=== PATIENT | male | born 1980 | race Caucasian/White ===

== ENCOUNTER 2016-08-13 16:17 | Emergency (ER) | payer BC ==
--- NOTE | 2016-08-13 19:26 | ED CLINICAL REPORT ---
Clinical Report - Physicians/Mid Levels [facility] [address] [place] [address] 08/13/2016 16:20 [id number] Time Seen: 16:47 Mar 2016. Arrived- By private vehicle. HISTORY OF PRESENT ILLNESS Chief Complaint: ABDOMINAL PAIN. This started 7 days and is still present. It is described as "pain" and it is described as located in the left abdomen and the left flank. The patient has had nausea. No loss of appetite, vomiting or diarrhea. (Patient reports consistent abdominal pain the left upper side over the last 7 days. No nausea vomiting or diarrhea. No history of similar, has a history of nephrolithiasis, reports this is different.). REVIEW OF SYSTEMS No constipation, black stools, hematemesis, difficulty with urination or pain with urination. No fever, headache or chills. All systems otherwise negative, except as recorded above. SOCIAL HISTORY Never smoker. No alcohol use or drug use. ADDITIONAL NOTES The nursing notes have been reviewed. PHYSICAL EXAM Vital Signs: 08/13/2016 16:34 BP: 135/90. HR: 74. RR: 18. O2 saturation: 98%. Temp: 98.3 F. Pain level now: 7/10. Appearance: Alert. Eyes: Eyes normal inspection. ENT: Nose normal. Pharynx normal. No pharyngeal erythema or tonsillar exudate. Neck: Normal inspection. CVS: Normal heart rate and rhythm. Heart sounds normal. No cardiac murmur or extra heart sounds. Respiratory: No respiratory distress. Breath sounds normal. Chest nontender. No decreased air movement. Abdomen: Soft. Mild tenderness in the epigastric area and left upper quadrant. No organomegaly. No mass. Obese. No distention or scar present. Back: Normal inspection. No CVA tenderness. Skin: Skin warm. Normal skin color. Neuro: Oriented X 3. No motor deficit. LABS, X-RAYS, AND EKG Abdominal CT: IMPRESSION: 1. 3 mm proximal ureteral calculus causing mild left hydronephrosis. 2. Mild hepatic steatosis. 3. Findings called to the emergency room. All CT scans at this facility use dose modulation, iterative reconstruction, and/or weight-based dosing when appropriate to reduce radiation dose to as low as reasonably achievable. Electronically Final signed by:Ericka Mackey MD 08/13/2016 7:40:04 PM. Laboratory Tests: UA-Culture if indicated: (FRANCISCA: 08/13/2016 16:40) ( NvgRcvd 08/13/2016 17:12) Final results Test Result Flag Units (Reference) URINE COLOR YELLOW URINE APPEARANCE CLEAR URINE GLUCOSE NEGATIVE (NEGATIVE) URINE BILIRUBIN NEGATIVE (NEGATIVE) URINE KETONE NEGATIVE (NEGATIVE) URINE SPECIFIC GRAVITY >= 1.030 (1.010-1.030) URINE PH 5.5 (5.0-8.0) URINE PROTEIN NEGATIVE (NEGATIVE) URINE UROBILINOGEN 0.2 EU/dL (0.2-1.0) URINE NITRITE NEGATIVE (NEGATIVE) URINE BLOOD 1+ (NEGATIVE) URINE LEUK ESTERASE NEGATIVE (NEGATIVE) URINE RBC 1-3 rbc/hpf (0-1) URINE WBC 5-10 wbc/hpf (0-1) URINE EPITHELIAL CELLS 0-1 EPI/hpf (0-5) URINE BACTERIA NONE SEEN (NONE SEEN) URINE COMMENT CULT NOT INDICATED 1+ MUCUSURINE CULTURES ARE SET-UP BASED ON THE FOLLOWING CRITERIA:POSITIVE NITRITEPOSITIVE LEUKOCYTE ESTERASEGREATER THAN 10 WHITE BLOOD CELLSMODERATE (2+) OR GREATER BACTERIA CBC w Diff: (FRANCISCA: 08/13/2016 17:03) ( [facility] 08/13/2016 17:27) Final results Test Result Flag Units (Reference) WHITE BLOOD COUNT 6.8 K/uL (4.5-11.5) RED BLOOD COUNT 4.71 M/uL (4.50-5.90) HEMOGLOBIN 12.4 L gm/dL (13.5-17.5) HEMATOCRIT 37.6 L % (41.0-53.0) MEAN CELL VOLUME 80 fL (80-100) MEAN CORPUSCULAR HGB 26 pg (26-34) MEAN CORPUSCULAR HGB CONC 33 g/dL (31-37) RED CELL DISTRIBUTION WIDTH 12.9 % (11.6-14.8) PLATELET COUNT 194 K/uL (150-400) NEUTROPHIL % 65.4 % (50-75) LYMPH % 26.5 % (25-40) MONO % 6.3 % (3-14) EOSINOPHIL % 1.6 % (0-4) BASOPHIL % 0.2 % (0-2) CMP: (FRANCISCA: 08/13/2016 17:03) ( MsgRcvd 08/13/2016 17:48) Final results Test Result Flag Units (Reference) GLUCOSE 114 H mg/dL (70-110) BUN 12 mg/dL (7-18) CREATININE 0.8 mg/dL (0.6-1.3) Estimated GFR >60 mL/min Estimated GFR- >60 mL/min Note: Persistent reduction over 3 months in eGFR<60 mL/min/1.73 m2 defines CKD. Patients with eGFR values>=60 mL/min/1.73 m2 may also have CKD if evidence ofpersistent proteinuria. Additional information may be foundat [email or web address].org. SODIUM 142 mmol/L (136-145) POTASSIUM 3.7 mmol/L (3.5-5.1) CHLORIDE 105 mmol/L (98-107) CARBON DIOXIDE 29 mmol/L (21-32) CALCIUM 8.8 mg/dL (8.5-10.1) TOTAL PROTEIN 7.1 g/dL (6.4-8.2) ALBUMIN 3.4 g/dL (3.3-5.0) BILIRUBIN, TOTAL 0.8 mg/dL (0.0-1.0) ALKALINE PHOSPHATASE 71 U/L (46-116) AST (SGOT) 32 U/L (15-37) ALT (SGPT) 78 U/L (12-78) LIPASE 85 U/L (73-393) . PROGRESS AND PROCEDURES Course of Care: During the time in the ED, the following DDX were considered: acute surgical abdomen, hemodynamic or metabolic instability, dehydration, gastroenteritis-viral, food borne, or bacterial, food intolerance, irritable or inflammatory bowel, infection, sepsis. Hematuria, with nephrolithiasis, with no signs of sepsis. Pt stable. Afebrile. Pt to f/u outpatient. Given pain control in ER. Strict return precautions, and f/u with urology. 08/13/2016 19:51 BP: 124/74. HR: 85. RR: 16. O2 saturation: 98%. Temp: 98.1 F. Pain level now: 10. Patient is stable. Symptoms better. Patient/family counseled. Disposition: Discharged. CLINICAL IMPRESSION Ureterolithiasis (single stone) in the left ureter with renal colic and hematuria. INSTRUCTIONS (urology: [phone]). Prescription Medications: Hydrocodone/APAP 7.5mg / 325mg: take 1 orally every 6 hours. Dispense twenty (20). No refill. Zofran (orally disintegrating tablets) 4 mg: take 1 orally every 6 hours for 3 days as needed for nausea. Dispense ten (10). No refill. Substitution is permissible. Flomax 0.4 mg: take 1 orally every 24 hours. Dispense ten (10). No refills. Substitution is permissible. Follow-up: Follow up with a specialist. Understanding of the discharge instructions verbalized by patient. (Electronically signed by Brook Griffith P.A.-C 08/13/2016 20:01)
--- NOTE | 2016-08-13 19:26 | ED ORDER SUMMARY ---
..... Patient: GILL RATLIFF OrderSheet [facility] VisitID: [id number] [place] [address] 36y, M Registration Date/Time: 08/13/2016 ORDER SHEET Weight: 102.0 kg (stated) Allergies: No Known Drug Allergy GENERAL ORDERS: CBC w Diff Urgent (16:40 08/13/2016 EKoroleva P.A.-C) (Ack 16:42 OHmoralesnandez) (17:11 MWinterer R.N.) BMP Urgent (16:40 08/13/2016 EKoroleva P.A.-C) (Cancelled: Other16:40 EKoroleva P.A.-C) UA-Culture if indicated Urgent (16:40 08/13/2016 EKoroleva P.A.-C) (Ack 16:42 OHmoralesnandez) (17:12 MWinterer R.N.) Lipase Urgent (16:40 08/13/2016 EKoroleva P.A.-C) (Ack 16:42 OHmoralesnandez) (17:11 MWinterer R.N.) CMP Urgent (16:40 08/13/2016 EKoroleva P.A.-C) (Ack 16:42 OHmoralesnandez) (17:11 MWinterer R.N.) CT Abd/Pel wo Cont Urgent (17:51 08/13/2016 EKoroleva P.A.-C) (Ack 18:23 Marc) (18:23 Marc) MEDICATION ORDERS: IV FLUIDS: IV NS : initial bolus 1000 mL (1000 mL/hr), then 1000 mL/hr for X1 (NOW); Luis Alfredo (16:40 08/13/2016 EKoroleva P.A.-C) (Ack 16:43 MWinterer R.N.) (17:12 MWinterer R.N.) Toradol IV 30 mg (NOW) (17:45 08/13/2016 EKoroleva P.A.-C) (Ack 17:50 MWinterer R.N.) (17:57 MWinterer R.N.) Dilaudid IV 0.5 mg (HIGH ALERT MEDICATION, NOW) (18:46 08/13/2016 MWinterer R.N. verbal order read back to Eve Cobian) (Ack 18:47 MWinterer R.N.) (18:52 MWinterer R.N.) Dilaudid IV 0.5 mg (HIGH ALERT MEDICATION, NOW) (19:26 08/13/2016 Eve Cobian) (Ack 19:27 HSoule) (19:51 RCollier R.N.) ORDER SHEET NOTES: [Electronically signed by Brook Griffith P.A.-C (20:01 08/13/2016)] [Electronically signed by Omayra Branham (21:39 08/13/2016)] [Electronically locked/signed by Omayra Branham (21:39 08/13/2016)]
--- NOTE | 2016-08-13 19:26 | ED NURSING NOTES ---
Clinical Report - Nurses [facility] [address] [place] [address] 08/13/2016 16:20 Patient: GILL RATLIFF TRIAGE Acuity: LEVEL 3. Chief Complaint: ABDOMINAL PAIN. Alert. No acute distress. SEPSIS SCREEN: Sepsis Screen. Negative (no infection suspected/documented). --16:39 Sarah Patel R.N. 16:34 08/13/16. BP: 135/90. HR: 74. RR: 18. O2 saturation: 98% on room air. Temp: 98.3 F (oral). Pain level now: 7/10. --16:39 Sarah Patel R.N. Weight: 102 kg stated. Height/Length: 68 inches Per Patient. BMI: 34.2. --16:38 Sarah Patel R.N. Medications Citalopram Hydrobromide Oral. --16:36 Sarah Patel R.N. Medication/allergy information source: the patient. --16:39 Sarah Patel R.N. Allergies No Known Drug Allergy. --16:36 Sarah Patel R.N. History Arrived by private vehicle. Historian: patient. Accompanied by spouse. Primary physician (Geraldine). Onset was gradual. (1 weeks ago). Describes the quality as sharp and cramping. Relates location as in the left lower quadrant. Notes pain level as 7/10 on arrival. He has had nausea. Reports last BM was 30 minutes ago. Treatment HOSPITALITY AMBASSADOR: None. SOCIAL HX: Never smoker. No alcohol use or drug use. FALL RISK ASSESSMENT: Fall risk assessment completed. No fall risk identified. NUTRITIONAL RISK ASSESSMENT: The nutritional risk assessment revealed no deficiencies. FUNCTIONAL ASSESSMENT: Functional assessment: no impairments noted. LEARNING NEEDS ASSESSMENT: The learning needs assessment revealed no barriers. SKIN INTEGRITY ASSESSMENT: Skin integrity risk assessment completed. No skin integrity risk identified. --16:39 Sarah Patel R.N. PROBLEMS: Soft Tissue Foreign Body. Puncture Wound. Depression. Reflux. Pneumonia. --16:36 Sarah Patel R.N. ADDITIONAL SURGERIES: Knee Surgery. Vasectomy. --16:36 Sarah Patel R.N. Assessment GENERAL / NEURO / PSYCH: Alert. Oriented X 4. Appears in no acute distress. Patient appears calm and cooperative. RESPIRATORY: Respirations not labored. CVS: Capillary refill less than 2 seconds. GI / : Abdomen soft. Abdominal tenderness in the left lower quadrant. SKIN: Mucous membranes are pink. Skin is warm and dry. --16:39 Sarah Patel R.N. Interventions ID band on patient. To treatment room. --16:39 Sarah Patel R.N. PHYSICAL ASSESSMENT 16:40 08/13/16. Ambulatory to room. GENERAL / NEURO / PSYCH: Alert. Oriented X 4. Appears in no acute distress. HEENT: Mucous membranes are pink. RESPIRATORY: Respirations not labored. CVS: Capillary refill less than 2 seconds. GI / : Abdomen soft. Abdominal tenderness. SKIN: Skin is warm and dry. --16:40 Sarah Patel R.N. NURSING PROGRESS NOTES 16:42 08/13/16. Patient gowned. Two patient identifiers checked. Call light placed in reach. Side rails up x 1. Bed placed in lowest position. Brakes of bed on. Patient ready for evaluation- chart flagged. --16:42 Sarah Patel R.N. 16:42 08/13/16. Checked patient name and birthdate: patient confirmed. Clean catch urine collected with return of yellow-colored clear urine; sample sent to lab for urinalysis. Specimen labeled in the presence of the patient. --16:42 Sarah Patel R.N. 16:46 08/13/2016 Site #1 started via IV in the right hand with an 20g angiocath, with aseptic technique and good blood return; one attempt. --17:11 Sarah Patel R.N. 16:57 08/13/2016 Started bag #1 1000 mL IV Fluids IV NS (Saline); at 999 mL/hr over 1 hour(s) via site #1 via IV pump. Allergies verified and confirmed 5 rights. IV patency established. IV site checked: no pain, redness, or swelling. IV flushed thoroughly pre- and post-medication administration. --17:12 Sarah Patel R.N. 17:57 08/13/2016 Toradol IVP 30 mg given over 1 minute(s) via site #1. Allergies verified and confirmed 5 rights. IV patency established. IV site checked: no pain, redness, or swelling. IV flushed thoroughly pre- and post-medication administration. IVP given by RN. --17:57 Sarah Patel R.N. 18:24 08/13/2016 IV Fluids IV NS Discontinued: bag #1 completed. Total amount infused: 1000 mL. IV patency established. IV site checked: no pain, redness, or swelling. IV flushed thoroughly. --18:26 Akosua Leblanc R.N. 18:26 08/13/2016 Started bag #2 1000 mL IV Fluids IV NS (Saline); at 1000 mL/hr via site #1 via IV pump. Allergies verified and confirmed 5 rights. IV patency established. IV site checked: no pain, redness, or swelling. IV flushed thoroughly pre- and post-medication administration. --18:26 Akosua Leblanc R.N. 18:43 08/13/2016 Toradol IVP Response: no adverse reaction pain is improving. Symptoms have improved the patient feels better. --18:43 Sarah Patel R.N. 18:50 08/13/16. BP: 132/92. HR: 72. RR: 16. O2 saturation: 97%. Pain level now: 11/11. --18:51 Sarah Patel R.N. 18:52 08/13/2016 Dilaudid (HYDROmorphone HCl PF) IVP 0.5 mg given over 1 minute(s) via site #1. Allergies verified, confirmed 5 rights and sedative warning given to the patient. IV patency established. IV site checked: no pain, redness, or swelling. IV flushed thoroughly pre- and post-medication administration. IVP given by RN. --18:52 Sarah Patel R.N. 19:05 08/13/16. BP: 129/85. HR: 73. RR: 20. O2 saturation: 96% on room air. Pain level now: 06/13. --19:06 Omayra Branham Care transferred and report received (Sarah Valdivia). --19:06 Omayra Branham 19:46 08/13/2016 Dilaudid (HYDROmorphone HCl PF) IVP 0.5 mg given over 2 minute(s) via site #1. Allergies verified, confirmed 5 rights and sedative warning given to the patient and patient's family. IV patency established. IV site checked: no pain, redness, or swelling. IV flushed thoroughly pre- and post-medication administration. --19:51 Akosua Leblanc R.N. DISPOSITION / DISCHARGE 19:51 08/13/16. BP: 124/74. HR: 85. RR: 16 (regular, unlabored and normal). O2 saturation: 98% on room air. Temp: 98.1 F (oral). Pain level now: 07/14. --19:52 Akosua Leblanc R.N. Condition at departure: stable. --19:52 Akosua Leblanc R.N. 20:13 08/13/16. BP: 124/74. HR: 85. RR: 16 (regular, unlabored and normal). O2 saturation: 98%. Temp: 98.1 F (oral). Pain level now: 07/14. --20:18 AliM Condition at departure: improved and stable. No learning barriers present. Discharge instructions provided and reviewed with the patient and spouse. Reviewed medication(s) side effects, precautions, dosing and course information. Prescription(s) given to the patient. Activity restrictions (no driving) reviewed (with pain medications). Patient verbalized understanding. Written instructions provided in Bulgarian. ( Taught pt not to drive while taking pain medication, may experience dizziness. Drink plenty of fluids to flush out stone and to prevent constipation.). The patient was discharged home and accompanied by spouse. He left the Emergency Department ambulatory and via private vehicle. Spouse driving. --20:18 Tony ( Charting reviewed by writing RN). --20:41 Omayra Branham 19:50 08/13/2016 Site #1 removed upon discharge. Catheter intact. Manual pressure and bandage applied. --20:44 Tony 19:50 08/13/2016 IV Fluids IV NS Discontinued: bag #2 completed upon discharge. Total amount infused: 1000 mL. IV patency established. IV site checked: no pain, redness, or swelling. IV flushed thoroughly. --20:44 Tony. Locked/Released at 08/13/2016 21:39 by Omayra Branham,
--- NOTE | 2016-08-13 19:26 | ED CLINICAL REPORT ---
Clinical Report - Physicians/Mid Levels [facility] [address] [place] [address] 08/13/2016 16:20 Patient: GILL RATLIFF [facility] [id number] Time Seen: 16:47 Mar 2016. Arrived- By private vehicle. HISTORY OF PRESENT ILLNESS Chief Complaint: ABDOMINAL PAIN. This started 7 days and is still present. It is described as "pain" and it is described as located in the left abdomen and the left flank. The patient has had nausea. No loss of appetite, vomiting or diarrhea. (Patient reports consistent abdominal pain the left upper side over the last 7 days. No nausea vomiting or diarrhea. No history of similar, has a history of nephrolithiasis, reports this is different.). REVIEW OF SYSTEMS No constipation, black stools, hematemesis, difficulty with urination or pain with urination. No fever, headache or chills. All systems otherwise negative, except as recorded above. SOCIAL HISTORY Never smoker. No alcohol use or drug use. ADDITIONAL NOTES The nursing notes have been reviewed. PHYSICAL EXAM Vital Signs: 08/13/2016 16:34 BP: 135/90. HR: 74. RR: 18. O2 saturation: 98%. Temp: 98.3 F. Pain level now: 7/10. Appearance: Alert. Eyes: Eyes normal inspection. ENT: Nose normal. Pharynx normal. No pharyngeal erythema or tonsillar exudate. Neck: Normal inspection. CVS: Normal heart rate and rhythm. Heart sounds normal. No cardiac murmur or extra heart sounds. Respiratory: No respiratory distress. Breath sounds normal. Chest nontender. No decreased air movement. Abdomen: Soft. Mild tenderness in the epigastric area and left upper quadrant. No organomegaly. No mass. Obese. No distention or scar present. Back: Normal inspection. No CVA tenderness. Skin: Skin warm. Normal skin color. Neuro: Oriented X 3. No motor deficit. LABS, X-RAYS, AND EKG Abdominal CT: IMPRESSION: 1. 3 mm proximal ureteral calculus causing mild left hydronephrosis. 2. Mild hepatic steatosis. 3. Findings called to the emergency room. All CT scans at this facility use dose modulation, iterative reconstruction, and/or weight-based dosing when appropriate to reduce radiation dose to as low as reasonably achievable. Electronically Final signed by:Ericka Mackey MD 08/13/2016 7:40:04 PM. Laboratory Tests: UA-Culture if indicated: (FRANCISCA: 08/13/2016 16:40) ( MogRcvd 08/13/2016 17:12) Final results Test Result Flag Units (Reference) URINE COLOR YELLOW URINE APPEARANCE CLEAR URINE GLUCOSE NEGATIVE (NEGATIVE) URINE BILIRUBIN NEGATIVE (NEGATIVE) URINE KETONE NEGATIVE (NEGATIVE) URINE SPECIFIC GRAVITY >= 1.030 (1.010-1.030) URINE PH 5.5 (5.0-8.0) URINE PROTEIN NEGATIVE (NEGATIVE) URINE UROBILINOGEN 0.2 EU/dL (0.2-1.0) URINE NITRITE NEGATIVE (NEGATIVE) URINE BLOOD 1+ (NEGATIVE) URINE LEUK ESTERASE NEGATIVE (NEGATIVE) URINE RBC 1-3 rbc/hpf (0-1) URINE WBC 5-10 wbc/hpf (0-1) URINE EPITHELIAL CELLS 0-1 EPI/hpf (0-5) URINE BACTERIA NONE SEEN (NONE SEEN) URINE COMMENT CULT NOT INDICATED 1+ MUCUSURINE CULTURES ARE SET-UP BASED ON THE FOLLOWING CRITERIA:POSITIVE NITRITEPOSITIVE LEUKOCYTE ESTERASEGREATER THAN 10 WHITE BLOOD CELLSMODERATE (2+) OR GREATER BACTERIA CBC w Diff: (FRANCISCA: 08/13/2016 17:03) ( [facility] [facility]27) Final results Test Result Flag Units (Reference) WHITE BLOOD COUNT 6.8 K/uL (4.5-11.5) RED BLOOD COUNT 4.71 M/uL (4.50-5.90) HEMOGLOBIN 12.4 L gm/dL (13.5-17.5) HEMATOCRIT 37.6 L % (41.0-53.0) MEAN CELL VOLUME 80 fL (80-100) MEAN CORPUSCULAR HGB 26 pg (26-34) MEAN CORPUSCULAR HGB CONC 33 g/dL (31-37) RED CELL DISTRIBUTION WIDTH 12.9 % (11.6-14.8) PLATELET COUNT 194 K/uL (150-400) NEUTROPHIL % 65.4 % (50-75) LYMPH % 26.5 % (25-40) MONO % 6.3 % (3-14) EOSINOPHIL % 1.6 % (0-4) BASOPHIL % 0.2 % (0-2) CMP: (FRANCISCA: 08/13/2016 17:03) ( MsgRcvd 08/13/2016 17:48) Final results Test Result Flag Units (Reference) GLUCOSE 114 H mg/dL (70-110) BUN 12 mg/dL (7-18) CREATININE 0.8 mg/dL (0.6-1.3) Estimated GFR >60 mL/min Estimated GFR- >60 mL/min Note: Persistent reduction over 3 months in eGFR<60 mL/min/1.73 m2 defines CKD. Patients with eGFR values>=60 mL/min/1.73 m2 may also have CKD if evidence ofpersistent proteinuria. Additional information may be foundat www.kidney.org. SODIUM 142 mmol/L (136-145) POTASSIUM 3.7 mmol/L (3.5-5.1) CHLORIDE 105 mmol/L (98-107) CARBON DIOXIDE 29 mmol/L (21-32) CALCIUM 8.8 mg/dL (8.5-10.1) TOTAL PROTEIN 7.1 g/dL (6.4-8.2) ALBUMIN 3.4 g/dL (3.3-5.0) BILIRUBIN, TOTAL 0.8 mg/dL (0.0-1.0) ALKALINE PHOSPHATASE 71 U/L (46-116) AST (SGOT) 32 U/L (15-37) ALT (SGPT) 78 U/L (12-78) LIPASE 85 U/L (73-393) . PROGRESS AND PROCEDURES Course of Care: During the time in the ED, the following DDX were considered: acute surgical abdomen, hemodynamic or metabolic instability, dehydration, gastroenteritis-viral, food borne, or bacterial, food intolerance, irritable or inflammatory bowel, infection, sepsis. Hematuria, with nephrolithiasis, with no signs of sepsis. Pt stable. Afebrile. Pt to f/u outpatient. Given pain control in ER. Strict return precautions, and f/u with urology. 08/13/2016 19:51 BP: 124/74. HR: 85. RR: 16. O2 saturation: 98%. Temp: 98.1 F. Pain level now: 10. Patient is stable. Symptoms better. Patient/family counseled. Disposition: Discharged. CLINICAL IMPRESSION Ureterolithiasis (single stone) in the left ureter with renal colic and hematuria. INSTRUCTIONS (urology: [phone]). Prescription Medications: Hydrocodone/APAP 7.5mg / 325mg: take 1 orally every 6 hours. Dispense twenty (20). No refill. Zofran (orally disintegrating tablets) 4 mg: take 1 orally every 6 hours for 3 days as needed for nausea. Dispense ten (10). No refill. Substitution is permissible. Flomax 0.4 mg: take 1 orally every 24 hours. Dispense ten (10). No refills. Substitution is permissible. Follow-up: Follow up with a specialist. Understanding of the discharge instructions verbalized by patient. (Electronically signed by Brook Griffith P.A.-C 08/13/2016 20:01)
--- NOTE | 2016-08-13 19:26 | ED ORDER SUMMARY ---
..... Patient: GILL RATLIFF OrderSheet [facility] VisitID: [id number] [place] [address] 36y, M Registration Date/Time: 08/13/2016 ORDER SHEET Weight: 102.0 kg (stated) Allergies: No Known Drug Allergy GENERAL ORDERS: CBC w Diff Urgent (16:40 08/13/2016 EKoroleva P.A.-C) (Ack 16:42 OHmoralesnandez) (17:11 MWinterer R.N.) BMP Urgent (16:40 08/13/2016 EKoroleva P.A.-C) (Cancelled: Other16:40 EKoroleva P.A.-C) UA-Culture if indicated Urgent (16:40 08/13/2016 EKoroleva P.A.-C) (Ack 16:42 OHmoralesnandez) (17:12 MWinterer R.N.) Lipase Urgent (16:40 08/13/2016 EKoroleva P.A.-C) (Ack 16:42 OHmoralesnandez) (17:11 MWinterer R.N.) CMP Urgent (16:40 08/13/2016 EKoroleva P.A.-C) (Ack 16:42 OHmoralesnandez) (17:11 MWinterer R.N.) CT Abd/Pel wo Cont Urgent (17:51 08/13/2016 EKoroleva P.A.-C) (Ack 18:23 Marc) (18:23 Marc) MEDICATION ORDERS: IV FLUIDS: IV NS : initial bolus 1000 mL (1000 mL/hr), then 1000 mL/hr for X1 (NOW); Luis Alfredo (16:40 08/13/2016 EKoroleva P.A.-C) (Ack 16:43 MWinterer R.N.) (17:12 MWinterer R.N.) Toradol IV 30 mg (NOW) (17:45 08/13/2016 EKoroleva P.A.-C) (Ack 17:50 MWinterer R.N.) (17:57 MWinterer R.N.) Dilaudid IV 0.5 mg (HIGH ALERT MEDICATION, NOW) (18:46 08/13/2016 MWinterer R.N. verbal order read back to Eve Cobian) (Ack 18:47 MWinterer R.N.) (18:52 MWinterer R.N.) Dilaudid IV 0.5 mg (HIGH ALERT MEDICATION, NOW) (19:26 08/13/2016 Eve Cobian) (Ack 19:27 HSoule) (19:51 RCollier R.N.) ORDER SHEET NOTES: [Electronically signed by Brook Griffith P.A.-C (20:01 08/13/2016)] [Electronically signed by Omayra Branham (21:39 08/13/2016)] [Electronically locked/signed by Omayra Branham (21:39 08/13/2016)]
--- NOTE | 2016-08-13 19:39 | DIAGNOSTIC IMAGING REPORT ---
PROCEDURE: CT ABDOMEN/PELVIS W/O CONTRAST INDICATION: HEMATURIA TECHNIQUE: Axial CT images were obtained through the abdomen and pelvis without IV contrast. Coronal and sagittal reformations were created. COMPARISON: None. FINDINGS: 3 mm proximal left ureteral calcification causing mild left hydronephrosis. No other stones. Mild diffuse hepatic steatosis. Clear lung bases. Normal size heart. No hiatal hernia. The unenhanced appearance of the gallbladder, adrenal glands, kidneys, pancreas and spleen is normal. The abdominal aorta is normal in its course and caliber. There are no suspicious calcifications, retroperitoneal adenopathy or masses. The stomach, upper bowel loops, and mesentery appears normal. Intact anterior abdominal wall. No free fluid, or inflammation. The unenhanced appearance of the prostate gland, seminal vesicles, urinary bladder, pelvic vessels, and pelvic bowel loops is normal. Normal appendix. No suspicious calcifications, free fluid, or mass. Intact osseous structures. Benign bone islands in the left femoral neck and ischium. IMPRESSION: 1. 3 mm proximal ureteral calculus causing mild left hydronephrosis. 2. Mild hepatic steatosis. 3. Findings called to the emergency room. All CT scans at this facility use dose modulation, iterative reconstruction, and/or weight-based dosing when appropriate to reduce radiation dose to as low as reasonably achievable.
--- NOTE | 2016-08-13 21:39 | ED DISCHARGE INSTRUCTIONS ---
Patient: GILL RATLIFF General Instructions [facility] VisitID: [id number] [place] [address] 36y, M Registration Date/Time: 08/13/2016 Ureterolithiasis (single stone) in the left ureter with renal colic and hematuria. INSTRUCTIONS (urology: [phone]). Prescription Medications: Hydrocodone/APAP 7.5mg / 325mg: take 1 orally every 6 hours. Dispense twenty (20). No refill. Zofran (orally disintegrating tablets) 4 mg: take 1 orally every 6 hours for 3 days as needed for nausea. Dispense ten (10). No refill. Substitution is permissible. Flomax 0.4 mg: take 1 orally every 24 hours. Dispense ten (10). No refills. Substitution is permissible. Follow-up: Follow up with a specialist. Understanding of the discharge instructions verbalized by patient. ADDITIONAL INFORMATION Kidney Stone (W/ Colic) The sharp cramping pain and nausea/vomiting that you have is due to a small stone which has formed in the kidney and is now passing down a narrow tube (ureter) on its way to your bladder. Once it reaches your bladder, the pain will stop. The stone may pass in your urine stream in one piece. [The size may be 1/16" to 1/4" (1-6mm)]. Or, the stone may also break up into rusty fragments which you may not even notice. Once you have had a kidney stone, you are at risk for developing another one in the future. Home Care: Drink plenty of fluids (at least 8 to 10 glasses of water a day). Most stones will pass on their own, but may take from a few hours to a few days. Sometimes the stone is too large to pass by itself and special methods will have to be used to remove the stone. Each time you urinate, do so in a jar. Pour the urine from the jar through the strainer and into the toilet. Continue doing this until 24 hours after your pain stops. By then, if there was a kidney stone, it should pass from your bladder. Some stones dissolve into sand-like particles and pass right through the strainer. In that case, you wont ever see a stone. Save any stone that you find in the strainer and bring it to your doctor for analysis. It may be possible to prevent certain types of stones from forming. Therefore, it is important to know what kind of stone you have. Try to stay as active as possible since this will help the stone pass. Do not stay in bed unless your pain prevents you from getting up. You may notice a red, pink or brown color to your urine. This is normal while passing a kidney stone. Follow Up with your doctor or return to this facility if the pain lasts more than 48 hours. Get Prompt Medical Attention if any of the following occur: Pain that is not controlled by the medicine given Repeated vomiting or unable to keep down fluids Weakness, dizziness or fainting Fever of 100.4F (38C) or higher, or as directed by your healthcare provider Passage of solid red or brown urine (can't see through it) or urine with lots of blood clots Unable to pass urine for 8 hours and increasing bladder pressure Hydrocodone Bitartrate, Acetaminophen Oral tablet What is this medicine? ACETAMINOPHEN; HYDROCODONE (a set a WENDIE carl fen; parish droe KOE done) is a pain reliever. It is used to treat mild to moderate pain. How should I use this medicine? Take this medicine by mouth. Swallow it with a full glass of water. Follow the directions on the prescription label. If the medicine upsets your stomach, take the medicine with food or milk. Do not take more than you are told to take. Talk to your software development coordinator regarding the use of this medicine in children. This medicine is not approved for use in children. What side effects may I notice from receiving this medicine? Side effects that you should report to your doctor or health primary care sales representative as soon as possible: allergic reactions like skin rash, itching or hives, swelling of the face, lips, or tongue breathing problems confusion feeling faint or lightheaded, falls stomach pain yellowing of the eyes or skin Side effects that usually do not require medical attention (report to your doctor or health primary care sales representative if they continue or are bothersome): nausea, vomiting stomach upset What may interact with this medicine? alcohol antihistamines isoniazid medicines for depression, anxiety, or psychotic disturbances medicines for sleep muscle relaxants naltrexone narcotic medicines (opiates) for pain phenobarbital ritonavir tramadol What if I miss a dose? If you miss a dose, take it as soon as you can. If it is almost time for your next dose, take only that dose. Do not take double or extra doses. Where should I keep my medicine? Keep out of the reach of children. This medicine can be abused. Keep your medicine in a safe place to protect it from theft. Do not share this medicine with anyone. Selling or giving away this medicine is dangerous and against the law. Store at room temperature between 15 and 30 degrees C (59 and 86 degrees F). Protect from light. Keep container tightly closed. Throw away any unused medicine after the expiration date. Discard unused medicine and used packaging carefully. Pets and children can be harmed if they find used or lost packages. What should I tell my health care provider before I take this medicine? They need to know if you have any of these conditions: brain tumor Crohn's disease, inflammatory bowel disease, or ulcerative colitis drink more than 3 alcohol-containing drinks per day drug abuse or addiction head injury heart or circulation problems kidney disease or problems going to the bathroom liver disease lung disease, asthma, or breathing problems an unusual or allergic reaction to acetaminophen, hydrocodone, other opioid analgesics, other medicines, foods, dyes, or preservatives or trying to get breast-feeding What should I watch for while using this medicine? Tell your doctor or health primary care sales representative if your pain does not go away, if it gets worse, or if you have new or a different type of pain. You may develop tolerance to the medicine. Tolerance means that you will need a higher dose of the medicine for pain relief. Tolerance is normal and is expected if you take the medicine for a long time. Do not suddenly stop taking your medicine because you may develop a severe reaction. Your body becomes used to the medicine. This does NOT mean you are addicted. Addiction is a behavior related to getting and using a drug for a non-medical reason. If you have pain, you have a medical reason to take pain medicine. Your doctor will tell you how much medicine to take. If your doctor wants you to stop the medicine, the dose will be slowly lowered over time to avoid any side effects. You may get drowsy or dizzy when you first start taking the medicine or change doses. Do not drive, use machinery, or do anything that may be dangerous until you know how the medicine affects you. Stand or sit up slowly. There are different types of narcotic medicines (opiates) for pain. If you take more than one type at the same time, you may have more side effects. Give your health care provider a list of all medicines you use. Your doctor will tell you how much medicine to take. Do not take more medicine than directed. Call emergency for help if you have problems breathing. The medicine will cause constipation. Try to have a bowel movement at least every 2 to 3 days. If you do not have a bowel movement for 3 days, call your doctor or health primary care sales representative. Too much acetaminophen can be very dangerous. Do not take Tylenol (acetaminophen) or medicines that contain acetaminophen with this medicine. Many non-prescription medicines contain acetaminophen. Always read the labels carefully. Ondansetron Oral disintegrating tablet What is this medicine? ONDANSETRON (on MARYBEL se spencer) is used to treat nausea and vomiting caused by chemotherapy. It is also used to prevent or treat nausea and vomiting after surgery. How should I use this medicine? These tablets are made to dissolve in the mouth. Do not try to push the tablet through the foil backing. With dry hands, peel away the foil backing and gently remove the tablet. Place the tablet in the mouth and allow it to dissolve, then swallow. While you may take these tablets with water, it is not necessary to do so. Talk to your software development coordinator regarding the use of this medicine in children. Special care may be needed. What side effects may I notice from receiving this medicine? Side effects that you should report to your doctor or health primary care sales representative as soon as possible: allergic reactions like skin rash, itching or hives, swelling of the face, lips, or tongue breathing problems dizziness fast or irregular heartbeat feeling faint or lightheaded, falls fever and chills swelling of the hands and feet tightness in the chest Side effects that usually do not require medical attention (report to your doctor or health primary care sales representative if they continue or are bothersome): constipation or diarrhea headache What may interact with this medicine? Do not take this medicine with any of the following medications: -apomorphine -cisapride -dofetilide -dronedarone -pimozide -thioridazine -ziprasidone This medicine may also interact with the following medications: -carbamazepine -phenytoin -rifampicin -tramadol -other medicines that prolong the QT interval (cause an abnormal heart rhythm) What if I miss a dose? If you miss a dose, take it as soon as you can. If it is almost time for your next dose, take only that dose. Do not take double or extra doses. Where should I keep my medicine? Keep out of the reach of children. Store between 2 and 30 degrees C (36 and 86 degrees F). Throw away any unused medicine after the expiration date. What should I tell my health care provider before I take this medicine? They need to know if you have any of these conditions: heart disease history of irregular heartbeat liver disease low levels of magnesium or potassium in the blood an unusual or allergic reaction to ondansetron, granisetron, other medicines, foods, dyes, or preservatives or trying to get breast-feeding What should I watch for while using this medicine? Check with your doctor or health primary care sales representative as soon as you can if you have any sign of an allergic reaction. You have been given the following additional information: Kidney Stone W/ Colic Hydrocodone Bitartrate, Acetaminophen Oral tablet Ondansetron Oral disintegrating tablet (Electronically signed by Brook Griffith P.A.-C 08/13/2016 20:01)
--- NOTE | 2016-08-13 21:39 | ED DISCHARGE INSTRUCTIONS ---
Patient: GILL RATLIFF General Instructions [facility] VisitID: [id number] [place] [address] 36y, M Registration Date/Time: 08/13/2016 Ureterolithiasis (single stone) in the left ureter with renal colic and hematuria. INSTRUCTIONS (urology: [phone]). Prescription Medications: Hydrocodone/APAP 7.5mg / 325mg: take 1 orally every 6 hours. Dispense twenty (20). No refill. Zofran (orally disintegrating tablets) 4 mg: take 1 orally every 6 hours for 3 days as needed for nausea. Dispense ten (10). No refill. Substitution is permissible. Flomax 0.4 mg: take 1 orally every 24 hours. Dispense ten (10). No refills. Substitution is permissible. Follow-up: Follow up with a specialist. Understanding of the discharge instructions verbalized by patient. ADDITIONAL INFORMATION Kidney Stone (W/ Colic) The sharp cramping pain and nausea/vomiting that you have is due to a small stone which has formed in the kidney and is now passing down a narrow tube (ureter) on its way to your bladder. Once it reaches your bladder, the pain will stop. The stone may pass in your urine stream in one piece. [The size may be 1/16" to 1/4" (1-6mm)]. Or, the stone may also break up into rusty fragments which you may not even notice. Once you have had a kidney stone, you are at risk for developing another one in the future. Home Care: Drink plenty of fluids (at least 8 to 10 glasses of water a day). Most stones will pass on their own, but may take from a few hours to a few days. Sometimes the stone is too large to pass by itself and special methods will have to be used to remove the stone. Each time you urinate, do so in a jar. Pour the urine from the jar through the strainer and into the toilet. Continue doing this until 24 hours after your pain stops. By then, if there was a kidney stone, it should pass from your bladder. Some stones dissolve into sand-like particles and pass right through the strainer. In that case, you wont ever see a stone. Save any stone that you find in the strainer and bring it to your doctor for analysis. It may be possible to prevent certain types of stones from forming. Therefore, it is important to know what kind of stone you have. Try to stay as active as possible since this will help the stone pass. Do not stay in bed unless your pain prevents you from getting up. You may notice a red, pink or brown color to your urine. This is normal while passing a kidney stone. Follow Up with your doctor or return to this facility if the pain lasts more than 48 hours. Get Prompt Medical Attention if any of the following occur: Pain that is not controlled by the medicine given Repeated vomiting or unable to keep down fluids Weakness, dizziness or fainting Fever of 100.4F (38C) or higher, or as directed by your healthcare provider Passage of solid red or brown urine (can't see through it) or urine with lots of blood clots Unable to pass urine for 8 hours and increasing bladder pressure Hydrocodone Bitartrate, Acetaminophen Oral tablet What is this medicine? ACETAMINOPHEN; HYDROCODONE (a set a WENDIE carl fen; parish droe KOE done) is a pain reliever. It is used to treat mild to moderate pain. How should I use this medicine? Take this medicine by mouth. Swallow it with a full glass of water. Follow the directions on the prescription label. If the medicine upsets your stomach, take the medicine with food or milk. Do not take more than you are told to take. Talk to your manager tax regarding the use of this medicine in children. This medicine is not approved for use in children. What side effects may I notice from receiving this medicine? Side effects that you should report to your doctor or health career development facilitator as soon as possible: allergic reactions like skin rash, itching or hives, swelling of the face, lips, or tongue breathing problems confusion feeling faint or lightheaded, falls stomach pain yellowing of the eyes or skin Side effects that usually do not require medical attention (report to your doctor or health career development facilitator if they continue or are bothersome): nausea, vomiting stomach upset What may interact with this medicine? alcohol antihistamines isoniazid medicines for depression, anxiety, or psychotic disturbances medicines for sleep muscle relaxants naltrexone narcotic medicines (opiates) for pain phenobarbital ritonavir tramadol What if I miss a dose? If you miss a dose, take it as soon as you can. If it is almost time for your next dose, take only that dose. Do not take double or extra doses. Where should I keep my medicine? Keep out of the reach of children. This medicine can be abused. Keep your medicine in a safe place to protect it from theft. Do not share this medicine with anyone. Selling or giving away this medicine is dangerous and against the law. Store at room temperature between 15 and 30 degrees C (59 and 86 degrees F). Protect from light. Keep container tightly closed. Throw away any unused medicine after the expiration date. Discard unused medicine and used packaging carefully. Pets and children can be harmed if they find used or lost packages. What should I tell my health care provider before I take this medicine? They need to know if you have any of these conditions: brain tumor Crohn's disease, inflammatory bowel disease, or ulcerative colitis drink more than 3 alcohol-containing drinks per day drug abuse or addiction head injury heart or circulation problems kidney disease or problems going to the bathroom liver disease lung disease, asthma, or breathing problems an unusual or allergic reaction to acetaminophen, hydrocodone, other opioid analgesics, other medicines, foods, dyes, or preservatives or trying to get breast-feeding What should I watch for while using this medicine? Tell your doctor or health career development facilitator if your pain does not go away, if it gets worse, or if you have new or a different type of pain. You may develop tolerance to the medicine. Tolerance means that you will need a higher dose of the medicine for pain relief. Tolerance is normal and is expected if you take the medicine for a long time. Do not suddenly stop taking your medicine because you may develop a severe reaction. Your body becomes used to the medicine. This does NOT mean you are addicted. Addiction is a behavior related to getting and using a drug for a non-medical reason. If you have pain, you have a medical reason to take pain medicine. Your doctor will tell you how much medicine to take. If your doctor wants you to stop the medicine, the dose will be slowly lowered over time to avoid any side effects. You may get drowsy or dizzy when you first start taking the medicine or change doses. Do not drive, use machinery, or do anything that may be dangerous until you know how the medicine affects you. Stand or sit up slowly. There are different types of narcotic medicines (opiates) for pain. If you take more than one type at the same time, you may have more side effects. Give your health care provider a list of all medicines you use. Your doctor will tell you how much medicine to take. Do not take more medicine than directed. Call emergency for help if you have problems breathing. The medicine will cause constipation. Try to have a bowel movement at least every 2 to 3 days. If you do not have a bowel movement for 3 days, call your doctor or health career development facilitator. Too much acetaminophen can be very dangerous. Do not take Tylenol (acetaminophen) or medicines that contain acetaminophen with this medicine. Many non-prescription medicines contain acetaminophen. Always read the labels carefully. Ondansetron Oral disintegrating tablet What is this medicine? ONDANSETRON (on MARYBEL se spencer) is used to treat nausea and vomiting caused by chemotherapy. It is also used to prevent or treat nausea and vomiting after surgery. How should I use this medicine? These tablets are made to dissolve in the mouth. Do not try to push the tablet through the foil backing. With dry hands, peel away the foil backing and gently remove the tablet. Place the tablet in the mouth and allow it to dissolve, then swallow. While you may take these tablets with water, it is not necessary to do so. Talk to your manager tax regarding the use of this medicine in children. Special care may be needed. What side effects may I notice from receiving this medicine? Side effects that you should report to your doctor or health career development facilitator as soon as possible: allergic reactions like skin rash, itching or hives, swelling of the face, lips, or tongue breathing problems dizziness fast or irregular heartbeat feeling faint or lightheaded, falls fever and chills swelling of the hands and feet tightness in the chest Side effects that usually do not require medical attention (report to your doctor or health career development facilitator if they continue or are bothersome): constipation or diarrhea headache What may interact with this medicine? Do not take this medicine with any of the following medications: -apomorphine -cisapride -dofetilide -dronedarone -pimozide -thioridazine -ziprasidone This medicine may also interact with the following medications: -carbamazepine -phenytoin -rifampicin -tramadol -other medicines that prolong the QT interval (cause an abnormal heart rhythm) What if I miss a dose? If you miss a dose, take it as soon as you can. If it is almost time for your next dose, take only that dose. Do not take double or extra doses. Where should I keep my medicine? Keep out of the reach of children. Store between 2 and 30 degrees C (36 and 86 degrees F). Throw away any unused medicine after the expiration date. What should I tell my health care provider before I take this medicine? They need to know if you have any of these conditions: heart disease history of irregular heartbeat liver disease low levels of magnesium or potassium in the blood an unusual or allergic reaction to ondansetron, granisetron, other medicines, foods, dyes, or preservatives or trying to get breast-feeding What should I watch for while using this medicine? Check with your doctor or health career development facilitator as soon as you can if you have any sign of an allergic reaction. You have been given the following additional information: Kidney Stone W/ Colic Hydrocodone Bitartrate, Acetaminophen Oral tablet Ondansetron Oral disintegrating tablet (Electronically signed by Brook Griffith P.A.-C 08/13/2016 20:01)
--- NOTE | 2016-08-13 21:39 | ED MED RECONCILIATION SUMMARY ---
Patient: GILL RATLIFF Medication Reconciliation Report [facility] VisitID: [id number] [place] [address] 36y, M Registration Date/Time: 08/13/2016 Weight: 102.0 kg Height/Length: 68 in. BMI: 34.2 ALLERGIES: No Known Drug Allergy The patient's Home Medications are listed below: THE FOLLOWING MEDICATIONS NEED TO BE RECONCILED: Citalopram Hydrobromide Oral The source(s) of the original Home Medication information: patient The following Medications were given to the patient in the Emergency Department: IV NS IV Fluids bolus 0, then 999 mL/hr, administered: 08/13/2016 4:57:00 PM Toradol [IVP] IVP 30 mg, administered: 08/13/2016 5:57:00 PM IV NS IV Fluids bolus 0, then 1000 mL/hr, administered: 08/13/2016 6:26:00 PM Dilaudid [IVP] IVP 0.5 mg, administered: 08/13/2016 6:52:00 PM Dilaudid [IVP] IVP 0.5 mg, administered: 08/13/2016 7:46:00 PM The following Medications were prescribed to the patient: Hydrocodone/APAP 7.5mg / 325mg: take 1 orally every 6 hours. Dispense twenty (20). No refill. -- Brook Griffith, P.A.-C Zofran (orally disintegrating tablets) 4 mg: take 1 orally every 6 hours for 3 days as needed for nausea. Dispense ten (10). No refill. Substitution is permissible. -- Brook Griffith, P.A.-C Flomax 0.4 mg: take 1 orally every 24 hours. Dispense ten (10). No refills. Substitution is permissible. -- Brook Griffith, P.A.-C
--- NOTE | 2016-08-13 21:39 | ED MAR SUMMARY ---
..... Medication Administration Record [facility] [address] [place] [address] Patient: GILL RATLIFF Visit ID: [id number] 36y, M Weight: 102.0 kg Height/Length: 68 in BMI: 34.2 ALLERGIES: No Known Drug Allergy Start 16:57 08/13/2016 Sarah Patel R.N., Stop 18:24 08/13/2016 Akosua Leblanc R.N. Medication Administered: IV NS (SALINE), Dose: IV Fluids over 1 hour(s), Rate: 999 mL/hr, Dispensed: 1000 mL bag, Site: #1 right hand. Medication Ordered: IV NS : initial bolus 1000 mL (1000 mL/hr), then 1000 mL/hr for X1 (NOW); Luis Alfredo. Given 17:57 08/13/2016 Sarah Patel R.N. Medication Administered: TORADOL [IVP], Dose: 30 mg IVP over 1 minute(s), Site: #1 right hand. Medication Ordered: Toradol IV 30 mg (NOW). Start 18:26 08/13/2016 Akosua Leblanc RNimo., Stop 19:50 08/13/2016 AliM, Medication Administered: IV NS (SALINE), Dose: IV Fluids, Rate: 1000 mL/hr, Dispensed: 1000 mL bag, Site: #1 right hand. Medication Ordered: IV NS : initial bolus 1000 mL (1000 mL/hr), then 1000 mL/hr for X1 (NOW); Luis Alfredo. Given 18:52 08/13/2016 Sarah Patel R.N. Medication Administered: DILAUDID [IVP] (HYDROMORPHONE HCL PF), Dose: 0.5 mg IVP over 1 minute(s), Site: #1 right hand. Medication Ordered: Dilaudid IV 0.5 mg (HIGH ALERT MEDICATION, NOW). Given 19:46 08/13/2016 Akosua Leblanc R.N. Medication Administered: DILAUDID [IVP] (HYDROMORPHONE HCL PF), Dose: 0.5 mg IVP over 2 minute(s), Site: #1 right hand. Medication Ordered: Dilaudid IV 0.5 mg (HIGH ALERT MEDICATION, NOW).
--- NOTE | 2016-08-13 21:39 | ED MAR SUMMARY ---
..... Medication Administration Record [facility] [address] [place] [address] Patient: GILL RATLIFF Visit ID: [id number] 36y, M Weight: 102.0 kg Height/Length: 68 in BMI: 34.2 ALLERGIES: No Known Drug Allergy Start 16:57 08/13/2016 Sarah Patel R.N., Stop 18:24 08/13/2016 Akosua Leblanc R.N. Medication Administered: IV NS (SALINE), Dose: IV Fluids over 1 hour(s), Rate: 999 mL/hr, Dispensed: 1000 mL bag, Site: #1 right hand. Medication Ordered: IV NS : initial bolus 1000 mL (1000 mL/hr), then 1000 mL/hr for X1 (NOW); Luis Alfredo. Given 17:57 08/13/2016 Sarah Patel R.N. Medication Administered: TORADOL [IVP], Dose: 30 mg IVP over 1 minute(s), Site: #1 right hand. Medication Ordered: Toradol IV 30 mg (NOW). Start 18:26 08/13/2016 Akosua Leblanc RNimo., Stop 19:50 08/13/2016 AliM, Medication Administered: IV NS (SALINE), Dose: IV Fluids, Rate: 1000 mL/hr, Dispensed: 1000 mL bag, Site: #1 right hand. Medication Ordered: IV NS : initial bolus 1000 mL (1000 mL/hr), then 1000 mL/hr for X1 (NOW); Luis Alfredo. Given 18:52 08/13/2016 Sarah Paetl R.N. Medication Administered: DILAUDID [IVP] (HYDROMORPHONE HCL PF), Dose: 0.5 mg IVP over 1 minute(s), Site: #1 right hand. Medication Ordered: Dilaudid IV 0.5 mg (HIGH ALERT MEDICATION, NOW). Given 19:46 08/13/2016 Akosua Leblanc R.N. Medication Administered: DILAUDID [IVP] (HYDROMORPHONE HCL PF), Dose: 0.5 mg IVP over 2 minute(s), Site: #1 right hand. Medication Ordered: Dilaudid IV 0.5 mg (HIGH ALERT MEDICATION, NOW).
--- NOTE | 2016-08-13 21:39 | ED MED RECONCILIATION SUMMARY ---
Patient: GILL RATLIFF Medication Reconciliation Report [facility] VisitID: [id number] [place] [address] 36y, M Registration Date/Time: 08/13/2016 Weight: 102.0 kg Height/Length: 68 in. BMI: 34.2 ALLERGIES: No Known Drug Allergy The patient's Home Medications are listed below: THE FOLLOWING MEDICATIONS NEED TO BE RECONCILED: Citalopram Hydrobromide Oral The source(s) of the original Home Medication information: patient The following Medications were given to the patient in the Emergency Department: IV NS IV Fluids bolus 0, then 999 mL/hr, administered: 08/13/2016 4:57:00 PM Toradol [IVP] IVP 30 mg, administered: 08/13/2016 5:57:00 PM IV NS IV Fluids bolus 0, then 1000 mL/hr, administered: 08/13/2016 6:26:00 PM Dilaudid [IVP] IVP 0.5 mg, administered: 08/13/2016 6:52:00 PM Dilaudid [IVP] IVP 0.5 mg, administered: 08/13/2016 7:46:00 PM The following Medications were prescribed to the patient: Hydrocodone/APAP 7.5mg / 325mg: take 1 orally every 6 hours. Dispense twenty (20). No refill. -- Brook Griffith, P.A.-C Zofran (orally disintegrating tablets) 4 mg: take 1 orally every 6 hours for 3 days as needed for nausea. Dispense ten (10). No refill. Substitution is permissible. -- Brook Griffith, P.A.-C Flomax 0.4 mg: take 1 orally every 24 hours. Dispense ten (10). No refills. Substitution is permissible. -- Brook Griffith, P.A.-C
== END 2016-08-13 19:35 | disposition home or self-care (01) ==
LOC: ED SRH 16:17
DX: N20.1 Calculus of ureter (principal); R31.9 Hematuria, unspecified
CPT/HCPCS: 90004; 90100; 92235; 95059